=== PATIENT | male | born 1995 | race Caucasian/White ===

== ENCOUNTER → 2018-01-17 | Outpatient (REF) | payer OTHER ==
[~2018-01-17] MED LIST: KET10 PO
[2018-01-17 15:53] LABS: PLATELET COUNT, AUTOMATED 322 K/uL (150-450)
== END ==
PROVIDERS: ATTEND Nurse Practitioner Family
DX: R11.10 Vomiting, unspecified (principal)
CPT/HCPCS: 82040; 82247; 82310; 82374; 82435; 82565; 82947; 84075; 84132; 84155; 84295; 84450; 84460; 84520; 85025